=== PATIENT | male | born 1955 | race African-American/Black ===

== ENCOUNTER 2016-09-03 10:59 | Emergency (ER) | payer OTHER ==
[~2016-09-03] VITALS: Ht 170.2 cm; Wt 71.4 kg
[~2016-09-03 10:59] MED LIST: Colace PO; DICLOFENAC SODI75 MG PO; EXFORGE HCT 101 EAC2 PO; Ecotrin PO; LISINOPRIL; LISINOPRIL-HCT1 EACH PO; LISINOPRIL40 MG PO
[2016-09-03 11:08] VITALS: BP 166/92
[2016-09-03] MEDS ORDERED: TRAMADOL HCL50 MG PO (13:53)
[2016-09-03] MEDS ORDERED: KEFLEX500 MG PO (13:55)
== END 2016-09-03 14:33 | disposition home or self-care (01) ==
LOC: EME 10:59
PROC: 3E0234Z Introduction of Serum, Toxoid and Vaccine into Muscle, Percutaneous Approach (ICD-10-PCS; principal; 2016-09-03)
PROC: 2W3DX1Z Immobilization of Left Lower Arm using Splint (ICD-10-PCS; principal; 2016-09-03)
DX: S00.81XA Abrasion of other part of head, initial encounter (principal); S63.592A Other specified sprain of left wrist, initial encounter; W18.39XA Other fall on same level, initial encounter; Z23 Encounter for immunization; K04.90 Unspecified diseases of pulp and periapical tissues; I10 Essential (primary) hypertension; Z87.891 Personal history of nicotine dependence
CPT/HCPCS: 70486; 73110; 99281; 99284

== ENCOUNTER 2016-09-16 11:14 | Emergency (ER) | payer OTHER ==
[~2016-09-16] VITALS: Ht 170.2 cm; Wt 72.4 kg
[~2016-09-16 11:14] MED LIST changes: +KEFLEX500 MG PO; +TRAMADOL HCL50 MG PO
[2016-09-16] MEDS ORDERED: ULTRAM50 MG PO (12:43)
[2016-09-16 12:58] VITALS: BP 107/67
== END 2016-09-16 12:58 | disposition home or self-care (01) ==
LOC: EME 11:14
DX: M67.431 Ganglion, right wrist (principal); I10 Essential (primary) hypertension; Z87.891 Personal history of nicotine dependence
CPT/HCPCS: 73110; 99281; 99284

== ENCOUNTER 2017-05-06 07:27 | Emergency (ER) | payer OTHER ==
[~2017-05-06] VITALS: Ht 167.6 cm; Wt 71.2 kg
[~2017-05-06 07:27] MED LIST changes: +ULTRAM50 MG PO
[2017-05-06 08:44] LABS: HEMATOCRIT 34.9 % (38.0-50.0); MCH 32.5 PG (29.0-34.0); MCHC 34.4 G/DL (30.0-36.0); MCV 94.6 FL (86-99); PLATELET COUNT 191 K/uL (156-360); RBC DIS.WIDTH-SD 48.6 % (39-53); RED BLOOD COUNT 3.69 M/uL (4.00-5.50); WHITE BLOOD COUNT 3.8 K/uL (4.1-10.2)
[2017-05-06 09:42] LABS: ERTH.SED.RATE 8 MM/HR (0-20)
[2017-05-06 11:27] VITALS: BP 132/89
== END 2017-05-06 11:31 | disposition home or self-care (01) ==
LOC: EME 07:27
PROVIDERS: Physician Assistant
DX: M21.372 Foot drop, left foot (principal); I10 Essential (primary) hypertension; Z87.891 Personal history of nicotine dependence
CPT/HCPCS: 72148; 85027; 85651; 86140; 99281; 99284

== ENCOUNTER 2017-07-12 07:08 | Inpatient (IN) | payer OTHER ==
[~2017-07-12] VITALS: Ht 167.6 cm; Wt 72.9 kg
[2017-07-12 07:54] LABS: HEMATOCRIT 35.8 % (38.0-50.0); HEMOGLOBIN 12.6 G/DL (12.5-16.6); MCH 32.6 PG (29.0-34.0); MCHC 35.2 G/DL (30.0-36.0); MCV 92.7 FL (86-99); RBC DIS.WIDTH-CV 13.6 % (11.8-14.6); RBC DIS.WIDTH-SD 46.4 % (39-53); RED BLOOD COUNT 3.86 M/uL (4.00-5.50)
[2017-07-12 08:28] LABS: ALBUMIN 3.3 g/dL (3.2-4.8)
[2017-07-12 08:29] LABS: CHLORIDE 96 mEq/L (99-109); POTASSIUM 4.6 mEq/L (3.7-5.4); SODIUM 137 mEq/L (136-147)
[2017-07-12 08:30] LABS: TROP-I INTERPRETATION NEGATIVE; TROPONIN-I 0.03 ng/mL (0.0-0.30)
[2017-07-12 08:31] LABS: GLUCOSE 156 mg/dL (70-99)
[2017-07-12 08:33] LABS: TOTAL BILIRUBIN 1.1 mg/dL (0.0-1.0)
[2017-07-12 08:34] LABS: ALKALINE PHOSPHATASE 32 IU/L (3-129)
[2017-07-12 08:35] LABS: CREATININE 7.6 mg/dL (0.6-1.3); GFR ESTIMATE (CALCULATED) 9 mL/min/ (58.99-99999)
[2017-07-12 08:36] LABS: ANISOCYTOSIS 1+; AST (GOT) 139 IU/L (2-34); ATYPICAL LYMPHOCYTE 3.5 %; BAND NEUTROPHILS 34.5 % (0-8.0); BASOPHILS 2.6 %; BURR CELLS 1+; EOSINOPHIL ABS CT 0; GIANT PLATELETS 1+; MACROCYTES 1+; METAMYELOCYTES 2.7 %; MONOCYTES 6.2 % (0-9.0); MYELOCYTES 1.8 %; NUCLEATED RBC'S 6.2; OVALOCYTES 1+; PLAT.SUFFICIENCY ADEQUATE; PLATELET CLUMPS PRESENT - PLATELET COUNT APPEARS ADQ.; POIKILOCYTOSIS 2+; POLYCHROMASIA 1+; SEG.NEUTROPHILS 40.7 % (46.0-76.0); TARGET CELLS 1+; TOX.VACUOLIZATION 1+; TOXIC GRANULATION 1+; UREA NITROGEN (BUN) 95 mg/dL (9-23)
[2017-07-12 08:38] LABS: ALT (GPT) 178 IU/L (3-49)
[2017-07-12] MEDS ORDERED: PREDNISONE10 MG PO (09:32)
[2017-07-12] MEDS ORDERED: FLEXERIL5 MG PO (09:32)
[2017-07-12 11:00] VITALS: BP 88/63
[2017-07-12 15:59] VITALS: BP 100/74
[2017-07-12 20:45] VITALS: BP 109/78
[2017-07-12 23:46] VITALS: BP 117/63
[2017-07-13] VITALS (7 sets, daily range): BP systolic 103–158; BP diastolic 53–97
[2017-07-13 05:23] LABS: HEMATOCRIT 30.2 % (38.0-50.0); MCH 31.8 PG (29.0-34.0); MCHC 34.4 G/DL (30.0-36.0); MCV 92.4 FL (86-99); NRBC (%) 0.7 /100 WBC (0-0); RBC DIS.WIDTH-CV 13.9 % (11.8-14.6); RBC DIS.WIDTH-SD 47.7 % (39-53); RED BLOOD COUNT 3.27 M/uL (4.00-5.50); WHITE BLOOD COUNT 5.9 K/uL (4.1-10.2)
[2017-07-13 05:24] LABS: HEMOGLOBIN 10.4 G/DL (12.5-16.6)
[2017-07-13 06:10] LABS: ALBUMIN 2.5 G/DL (3.2-4.8); CHLORIDE 99 MEQ/L (99-109); PHOSPHORUS 5.3 mg/dL (2.5-4.9); POTASSIUM 3.7 MEQ/L (3.7-5.4); SODIUM 136 MEQ/L (136-147); TRANSFERRIN (TIBC) 122.3 mg/dL (215-380); UREA NITROGEN (BUN) 99 mg/dL (9-23)
[2017-07-13 06:11] LABS: CREATININE 6.1 MG/DL (0.6-1.3); GFR ESTIMATE (CALCULATED) 12 mL/min/ (58.99-99999); GLUCOSE 110 mg/dL (70-99)
[2017-07-13 06:17] LABS: ABS NEUTROPHIL COUNT 5.1; ANISOCYTOSIS 2+; BURR CELLS 2+; EOSINOPHIL ABS CT 0; LYMPHOCYTES 10.4 % (15.0-45.0); MACROCYTES 2+; MONOCYTES 2.6 % (0-9.0); MYELOCYTES 0.9 %; NUCLEATED RBC'S 0.9; PLAT.SUFFICIENCY ADEQUATE; PLATELET COUNT 184 K/uL (156-360); POIKILOCYTOSIS 3+; SMUDGE CELLS 0.9
[2017-07-13 06:19] LABS: BAND NEUTROPHILS 11.3 % (0-8.0); SEG.NEUTROPHILS 74.8 % (46.0-76.0)
[2017-07-13 06:23] LABS: URIC ACID 9.1 mg/dL (3.1-9.2)
[2017-07-13 07:50] LABS: IRON < 10.0 MCG/DL (35-150); TRANSFERRIN SATUR. 8 % (20-55)
[2017-07-13 09:21] LABS: APPEARANCE SL.HAZY ((CLEAR)); BILIRUBIN NEGATIVE; BLOOD MODERATE; COLOR YELLOW ((YELLOW)); GLUCOSE (STRIP) NEGATIVE; KETONES NEGATIVE; LEUKOCYTES NEGATIVE; NITRITE NEGATIVE; PROTEIN (STRIP) 30; SPECIFIC GRAVITY 1.012 (1.000-1.030); UROBILINOGEN 0.2 MG/DL (0.2-1.0)
[2017-07-13 09:36] LABS: BACTERIA RARE /HPF; EPITHELIAL CELLS RARE /HPF; MUCUS TRACE /LPF; RED BLOOD CELLS 0-5 /HPF (0-5); UCUL ADDED? NO; WHITE BLOOD CELLS 0-5 /HPF (0-5)
[2017-07-13 10:19] LABS: UR CREATININE CONCENTRATION 92.2 MG/DL
[2017-07-13 10:24] LABS: UR CREATININE CONCENTRATION 91.8 MG/DL
[2017-07-14 02:29] VITALS: BP 134/119
[2017-07-14 03:48] LABS: HEMATOCRIT 30.6 % (38.0-50.0); HEMOGLOBIN 11.3 G/DL (12.5-16.6); MCH 32.8 PG (29.0-34.0); MCHC 36.9 G/DL (30.0-36.0); NRBC (%) 0.6 /100 WBC (0-0); PLATELET COUNT 218 K/uL (156-360); RBC DIS.WIDTH-CV 13.7 % (11.8-14.6); RBC DIS.WIDTH-SD 44.6 % (39-53); RED BLOOD COUNT 3.44 M/uL (4.00-5.50); WHITE BLOOD COUNT 9.8 K/uL (4.1-10.2)
[2017-07-14 03:51] LABS: HEMATOCRIT 30.4 % (38.0-50.0); HEMOGLOBIN 11.3 G/DL (12.5-16.6); MCH 32.9 PG (29.0-34.0); MCHC 37.2 G/DL (30.0-36.0); MCV 88.6 FL (86-99); NRBC (%) 0.5 /100 WBC (0-0); RBC DIS.WIDTH-CV 13.7 % (11.8-14.6); RBC DIS.WIDTH-SD 44.9 % (39-53); RED BLOOD COUNT 3.43 M/uL (4.00-5.50); WHITE BLOOD COUNT 9.6 K/uL (4.1-10.2)
[2017-07-14 03:55] LABS: INTER. NORMALIZED RATIO 1.1
[2017-07-14 03:57] LABS: PTT 28.2 SEC (25-37)
[2017-07-14 04:00] LABS: ALBUMIN 2.7 g/dL (3.2-4.8); POTASSIUM 3.9 mEq/L (3.7-5.4); SODIUM 138 mEq/L (136-147)
[2017-07-14 04:02] LABS: ALBUMIN 2.8 g/dL (3.2-4.8); GLUCOSE 100 mg/dL (70-99); POTASSIUM 3.8 mEq/L (3.7-5.4); SODIUM 138 mEq/L (136-147)
[2017-07-14 04:03] LABS: MAGNESIUM 1.7 mg/dL (1.3-2.7)
[2017-07-14 04:05] LABS: GLUCOSE 100 mg/dL (70-99); PHOSPHORUS 4.7 mg/dL (2.5-4.9)
[2017-07-14 04:07] LABS: AST (GOT) 81 IU/L (2-34); DIRECT BILIRUBIN 0.4 mg/dL (0.0-0.3); UREA NITROGEN (BUN) 99 mg/dL (9-23)
[2017-07-14 04:08] LABS: PHOSPHORUS 4.7 mg/dL (2.5-4.9)
[2017-07-14 04:09] LABS: ALT (GPT) 105 IU/L (3-49)
[2017-07-14 04:10] LABS: AST (GOT) 82 IU/L (2-34)
[2017-07-14 04:11] LABS: ALT (GPT) 104 IU/L (3-49)
[2017-07-14 04:14] LABS: ALKALINE PHOSPHATASE 63 IU/L (3-129); CHLORIDE 108 mEq/L (99-109); CREATININE 4.4 mg/dL (0.6-1.3); GFR ESTIMATE (CALCULATED) 18 mL/min/ (58.99-99999); TOTAL BILIRUBIN 0.6 mg/dL (0.0-1.0); TOTAL PROTEIN 5.8 g/dL (6.4-8.3); UREA NITROGEN (BUN) 99 mg/dL (9-23)
[2017-07-14 04:15] LABS: ALKALINE PHOSPHATASE 62 IU/L (3-129); CHLORIDE 108 mEq/L (99-109); CREATININE 4.4 mg/dL (0.6-1.3); GFR ESTIMATE (CALCULATED) 18 mL/min/ (58.99-99999); TOTAL BILIRUBIN 0.5 mg/dL (0.0-1.0); TOTAL PROTEIN 5.7 g/dL (6.4-8.3)
[2017-07-14 04:51] VITALS: BP 92/54; BP 94/64
[2017-07-14 05:30] LABS: BASOPHIL (%) 0.3 % (0-1); EOSINOPHIL (%) 0 % (0-5); IMMATURE GRANULOCYTE (%) 3.6 % (0.0-0.7); LYMPHOCYTE (%) 4.5 % (15-42); LYMPHOCYTE COUNT 0.4 K/uL (1.0-2.8); MONOCYTE (%) 5.6 % (3-12); MONOCYTE COUNT 0.5 K/uL (0-0.8); NEUTROPHIL COUNT 8.3 K/uL (1.8-6.4); PLATELET CLUMPS PRESENT - PLATELET COUNT APPEARS ADQ.
[2017-07-14 10:30] LABS: HEPATITIS B SURFACE ANTIGEN Nonreactive
[2017-07-14 10:31] LABS: ANTI-HEPATITIS A VIRUS (IGM) Nonreactive
[2017-07-14 10:31] LABS: BASE EXCESS -4.6 mEq/L (-3 to +3); BICARBONATE 18.6 mEq/L (22-26); CARBOXY HGB 1.4 % (0-5); METHEMOGLOBIN 1.3 % (0-1.5); PCO2 28 mm Hg (35-45); PO2 58 mm Hg (80-100); pH 7.43 (7.35-7.45)
[2017-07-14 10:32] LABS: COMMENTS - BLOOD GASES A+C+; DEVICE RA; SITE RR
[2017-07-14 10:32] LABS: ANTI-HEPATITIS B CORE (IGM) Nonreactive; HEPATITIS C ANTIBODY REACTIVE
[2017-07-14 11:29] LABS: BENZODIAZEPINES, URINE SCREEN Negative (200 ng/mL)
[2017-07-14 15:56] VITALS: BP 137/93
[2017-07-14 19:45] VITALS: BP 141/101
[2017-07-14 23:15] LABS: C DIFF TOXIN NEGATIVE (NEGATIVE)
[2017-07-15] VITALS (7 sets, daily range): BP systolic 119–163; BP diastolic 86–106
[2017-07-15 05:35] LABS: HEMATOCRIT 31.9 % (38.0-50.0); HEMOGLOBIN 11.2 G/DL (12.5-16.6); MCH 31.8 PG (29.0-34.0); MCHC 35.1 G/DL (30.0-36.0); MCV 90.6 FL (86-99); NRBC (%) 0.8 /100 WBC (0-0); RBC DIS.WIDTH-CV 14.6 % (11.8-14.6); RBC DIS.WIDTH-SD 48.8 % (39-53); RED BLOOD COUNT 3.52 M/uL (4.00-5.50); WHITE BLOOD COUNT 7.3 K/uL (4.1-10.2)
[2017-07-15 05:58] LABS: ALBUMIN 2.7 G/DL (3.2-4.8); ALKALINE PHOSPHATASE 64 IU/L (3-129); ALT (GPT) 63 IU/L (3-49); AST (GOT) 48 IU/L (2-34); CHLORIDE 109 MEQ/L (99-109); CREATININE 2.5 MG/DL (0.6-1.3); DIRECT BILIRUBIN 0.1 mg/dL (0.0-0.3); GFR ESTIMATE (CALCULATED) 34 mL/min/ (58.99-99999); GLUCOSE 78 mg/dL (70-99); PHOSPHORUS 4.4 mg/dL (2.5-4.9); POTASSIUM 3.4 MEQ/L (3.7-5.4); SODIUM 146 MEQ/L (136-147); TOTAL BILIRUBIN 0.5 MG/DL (0.0-1.0); TOTAL PROTEIN 6.4 G/DL (6.4-8.3); UREA NITROGEN (BUN) 76 mg/dL (9-23)
[2017-07-15 06:05] LABS: ABS NEUTROPHIL COUNT 6.2; ANISOCYTOSIS 2+; BAND NEUTROPHILS 4.3 % (0-8.0); BASOPHILS 0.9 %; BURR CELLS 1+; EOSINOPHIL ABS CT 0; HELMET CELLS 1+; LYMPHOCYTES 2.6 % (15.0-45.0); MACROCYTES 2+; METAMYELOCYTES 0.9 %; MONOCYTES 9.6 % (0-9.0); MYELOCYTES 1.7 %; NUCLEATED RBC'S 0.9; OVALOCYTES 1+; PLAT.SUFFICIENCY ADEQUATE; PLATELET COUNT 225 K/uL (156-360); POIKILOCYTOSIS 1+; POLYCHROMASIA 1+
[2017-07-15 18:13] LABS: TROP-I INTERPRETATION INDETERMINATE; TROPONIN-I 0.35 ng/mL (0.0-0.30)
[2017-07-16 00:07] LABS: TROP-I INTERPRETATION NEGATIVE; TROPONIN-I 0.22 ng/mL (0.0-0.30)
[2017-07-16 04:38] VITALS: BP 125/81
[2017-07-16 06:16] LABS: ALBUMIN 2.5 G/DL (3.2-4.8); CHLORIDE 109 MEQ/L (99-109); GLUCOSE 83 mg/dL (70-99); PHOSPHORUS 4.2 mg/dL (2.5-4.9); SODIUM 144 MEQ/L (136-147); UREA NITROGEN (BUN) 49 mg/dL (9-23)
[2017-07-16 06:17] LABS: CREATININE 1.6 MG/DL (0.6-1.3); GFR ESTIMATE (CALCULATED) 56 mL/min/ (58.99-99999); POTASSIUM 5.2 MEQ/L (3.7-5.4)
[2017-07-16 07:30] VITALS: BP 139/95
[2017-07-16 07:30] LABS: POTASSIUM 3.3 MEQ/L (3.7-5.4)
[2017-07-16 12:20] VITALS: BP 142/97
[2017-07-16 16:32] VITALS: BP 141/96
[2017-07-16 20:00] VITALS: BP 150/98
[2017-07-16 23:25] VITALS: BP 154/81
[2017-07-17] VITALS (9 sets, daily range): BP systolic 103–188; BP diastolic 65–85
[2017-07-17 06:43] LABS: ALBUMIN 2.2 G/DL (3.2-4.8); CHLORIDE 105 MEQ/L (99-109); GFR ESTIMATE (CALCULATED) > 59 mL/min/ (58.99-99999); PHOSPHORUS 3.1 mg/dL (2.5-4.9); POTASSIUM 3.9 MEQ/L (3.7-5.4); SODIUM 141 MEQ/L (136-147)
[2017-07-17 06:49] LABS: CREATININE 1.1 MG/DL (0.6-1.3); GLUCOSE 108 mg/dL (70-99); UREA NITROGEN (BUN) 23 mg/dL (9-23)
[2017-07-18] VITALS (7 sets, daily range): BP systolic 107–154; BP diastolic 66–88
[2017-07-18 07:04] LABS: ALBUMIN 2.2 G/DL (3.2-4.8); CHLORIDE 106 MEQ/L (99-109); CREATININE 1.1 MG/DL (0.6-1.3); GFR ESTIMATE (CALCULATED) > 59 mL/min/ (58.99-99999); GLUCOSE 115 mg/dL (70-99); PHOSPHORUS 3.1 mg/dL (2.5-4.9); POTASSIUM 3.8 MEQ/L (3.7-5.4); SODIUM 144 MEQ/L (136-147); UREA NITROGEN (BUN) 14 mg/dL (9-23)
[2017-07-18 07:15] LABS: ABS NEUTROPHIL COUNT 6.8; ANISOCYTOSIS 1+; ATYPICAL LYMPHOCYTE 2.6 %; BAND NEUTROPHILS 2.6 % (0-8.0); EOSINOPHIL ABS CT 0.1; EOSINOPHILS 0.9 % (0-5.0); GIANT PLATELETS 2+; HEMATOCRIT 30.1 % (38.0-50.0); HEMATOLOGY COMMENT 1 SN; LYMPHOCYTES 10.4 % (15.0-45.0); MACROCYTES 1+; MCH 31.9 PG (29.0-34.0); MCHC 33.2 G/DL (30.0-36.0); METAMYELOCYTES 1.7 %; MYELOCYTES 1.7 %; PLATELET CLUMPS PRESENT - PLATELET COUNTS APPEARS DECREASED; RBC DIS.WIDTH-SD 52.6 % (39-53); RED BLOOD COUNT 3.13 M/uL (4.00-5.50); SEG.NEUTROPHILS 73.1 % (46.0-76.0); TOXIC GRANULATION 2+
[2017-07-18 07:24] LABS: MCV 96.2 FL (86-99); PLATELET COUNT 327 K/uL (156-360)
[2017-07-19 00:34] LABS: ALBUMIN 2.3 G/DL (3.2-4.8); CHLORIDE 109 MEQ/L (99-109); POTASSIUM 3.8 MEQ/L (3.7-5.4); SODIUM 143 MEQ/L (136-147); TOTAL BILIRUBIN 0.5 MG/DL (0.0-1.0)
[2017-07-19 00:40] LABS: ALKALINE PHOSPHATASE 56 IU/L (3-129); ALT (GPT) 33 IU/L (3-49); GFR ESTIMATE (CALCULATED) > 59 mL/min/ (58.99-99999); GLUCOSE 120 mg/dL (70-99); UREA NITROGEN (BUN) 14 mg/dL (9-23)
[2017-07-19 00:45] LABS: AST (GOT) 21 IU/L (2-34); TOTAL PROTEIN 5.1 G/DL (6.4-8.3)
[2017-07-19 03:46] VITALS: BP 130/70
[2017-07-19 07:17] LABS: ALBUMIN 2.5 G/DL (3.2-4.8); CHLORIDE 105 MEQ/L (99-109); CREATININE 1.1 MG/DL (0.6-1.3); GFR ESTIMATE (CALCULATED) > 59 mL/min/ (58.99-99999); GLUCOSE 144 mg/dL (70-99); SODIUM 142 MEQ/L (136-147); UREA NITROGEN (BUN) 13 mg/dL (9-23)
[2017-07-19 07:19] LABS: PHOSPHORUS 4.9 mg/dL (2.5-4.9); POTASSIUM 5.1 MEQ/L (3.7-5.4)
[2017-07-19 08:06] VITALS: BP 113/74
[2017-07-19 15:23] VITALS: BP 112/70
[2017-07-19 17:43] LABS: TYPE OF FLUID THORACENTESIS
[2017-07-19 18:13] LABS: BODY FLUID GLUCOSE 149 MG/DL; BODY FLUID LDH 153 IU/L
[2017-07-19 18:17] LABS: APPEARANCE YELLOW-CLOUDY; BODY FLUID EOSINOPHILS 0 % (0-25); BODY FLUID RBC'S 3000 /MM^3 (0-100); BODY FLUID WBC'S 1954 /MM^3 (0-500); COMMENT MANY MACROPHAGES AND MESOTHELIAL CELLS SEEN; MONONUCLEAR WBC'S 44 %; POLYNUCLEAR WBC'S 56 % (0-25)
[2017-07-19 19:01] LABS: GLUCOSE 155 mg/dL (70-99); LACTATE DEHYDROGENASE 171 IU/L (20-246)
[2017-07-19 19:02] LABS: TOTAL PROTEIN 5.9 G/DL (6.4-8.3)
[2017-07-19 20:04] VITALS: BP 133/84
[2017-07-19 23:06] VITALS: BP 129/72
[2017-07-20 03:36] VITALS: BP 111/73
[2017-07-20 06:45] VITALS: BP 137/86
[2017-07-20 15:30] VITALS: BP 131/88
[2017-07-20 20:00] VITALS: BP 140/90
[2017-07-20 23:41] VITALS: BP 140/90
[2017-07-21 04:00] VITALS: BP 130/80
[2017-07-21 05:53] LABS: BASOPHIL (%) 0 % (0-1); EOSINOPHIL (%) 0 % (0-5); HEMATOCRIT 29.2 % (38.0-50.0); HEMOGLOBIN 9.9 G/DL (12.5-16.6); IMMATURE GRANULOCYTE (%) 1.2 % (0.0-0.7); LYMPHOCYTE (%) 11.9 % (15-42); LYMPHOCYTE COUNT 0.9 K/uL (1.0-2.8); MCH 32.2 PG (29.0-34.0); MCHC 33.9 G/DL (30.0-36.0); MCV 95.1 FL (86-99); MONOCYTE (%) 6.4 % (3-12); MONOCYTE COUNT 0.5 K/uL (0-0.8); NEUTROPHIL (%) 80.5 % (45-76); NEUTROPHIL COUNT 5.9 K/uL (1.8-6.4); RBC DIS.WIDTH-CV 14.6 % (11.8-14.6); RBC DIS.WIDTH-SD 50.6 % (39-53); RED BLOOD COUNT 3.07 M/uL (4.00-5.50); WHITE BLOOD COUNT 7.3 K/uL (4.1-10.2)
[2017-07-21 05:55] LABS: PLATELET COUNT 510 K/uL (156-360)
[2017-07-21 06:17] LABS: CREATININE 0.9 MG/DL (0.6-1.3); GFR ESTIMATE (CALCULATED) > 59 mL/min/ (58.99-99999); GLUCOSE 137 mg/dL (70-99); UREA NITROGEN (BUN) 19 mg/dL (9-23)
[2017-07-21 06:23] LABS: CHLORIDE 104 MEQ/L (99-109); SODIUM 139 MEQ/L (136-147)
[2017-07-21 07:15] VITALS: BP 134/87
[2017-07-21] MEDS ORDERED: Thiamine,Vitamin B1 PO (16:15)
[2017-07-21] MEDS ORDERED: THERAGRAN1 TABLET PO (16:15)
[2017-07-21] MEDS ORDERED: FOLIC ACID1 MG PO (16:15)
[2017-07-21] MEDS ORDERED: TYLENOL REGULA325 MG PO (16:16)
[2017-07-21] MEDS ORDERED: DULERA 200 MCG/13 GM IH (16:16)
[2017-07-21] MEDS ORDERED: LOPRESSOR50 MG PO (16:16)
[2017-07-21] MEDS ORDERED: FAMOTIDINE20 MG PO (16:16)
[2017-07-21] MEDS ORDERED: LEVAQUIN750 MG PO (16:17)
[2017-07-24 05:05] LABS: BODY FLUID PH 7.8 (())
== END 2017-07-21 17:15 | disposition home health service (06) | DRG 871 ==
LOC: EME 07:08 → EDOF 09:50 → 4EAST 09:50 → ENRESERV 09:51 → 4EAST 10:57 → ENRESERV 07-16 21:43 → 5EAST 07-16 23:20
PROVIDERS: Emergency Medicine; Family Medicine Sports Medicine; Internal Medicine Cardiovascular Disease; Internal Medicine Nephrology; Internal Medicine Pulmonary Disease
DX: A41.9 Sepsis, unspecified organism (principal); J44.0 Chronic obstructive pulmonary disease with (acute) lower respiratory infection; J18.9 Pneumonia, unspecified organism; N17.9 Acute kidney failure, unspecified; I10 Essential (primary) hypertension; E87.2 Acidosis; G89.29 Other chronic pain; F10.231 Alcohol dependence with withdrawal delirium; B95.3 Streptococcus pneumoniae as the cause of diseases classified elsewhere; I48.0 Paroxysmal atrial fibrillation; I25.10 Atherosclerotic heart disease of native coronary artery without angina pectoris; I95.9 Hypotension, unspecified; K21.9 Gastro-esophageal reflux disease without esophagitis; E78.5 Hyperlipidemia, unspecified; E86.0 Dehydration; F41.9 Anxiety disorder, unspecified; E87.6 Hypokalemia; M19.90 Unspecified osteoarthritis, unspecified site; F32.9 Major depressive disorder, single episode, unspecified; M48.00 Spinal stenosis, site unspecified
CPT/HCPCS: 36600; 70450; 71045; 71046; 71250; 74176; 76770; 76942; 80048; 80053; 80069; 80074; 80076; 80306 90; 81003; 82140; 82570; 82803; 82945; 82947; 83540; 83605; 83615; 83615 91; 83735; 83880; 83930; 83986 90; 84100; 84155; 84156; 84157; 84300; 84466; 84484; 84550; 84999; 85025; 85027; 85379; 85610; 85730; 87040; 87070; 87075; 87077; 87116; 87181; 87205; 87206; 87493; 87801; 88108; 88305; 89051; 93005; 93306; 94010; 94640; 94640 76; 94668; 94799; 97530 GP; 99202; 99281; 99285; G0480; J0456; J0696; J1644; J1650; J1756; J2060; J2543; J2920; J2930; J3370; J3480; J7030; J7050; J7512

== ENCOUNTER 2017-09-29 11:15 | Emergency (ER) | payer OTHER ==
[~2017-09-29] VITALS: Ht 167.6 cm; Wt 73.4 kg
[~2017-09-29 11:15] MED LIST changes: +DULERA 200 MCG/13 GM IH; +FAMOTIDINE20 MG PO; +FLEXERIL5 MG PO; +FOLIC ACID1 MG PO; +LEVAQUIN750 MG PO; +LOPRESSOR50 MG PO; +PREDNISONE10 MG PO; +THERAGRAN1 TABLET PO; +TYLENOL REGULA325 MG PO; +Thiamine,Vitamin B1 PO
[2017-09-29] MEDS ORDERED: FLEXERIL10 MG PO (17:05)
[2017-09-29 17:18] VITALS: BP 129/92
== END 2017-09-29 17:23 | disposition home or self-care (01) ==
LOC: EME 11:15
DX: M48.061 Spinal stenosis, lumbar region without neurogenic claudication (principal); G89.29 Other chronic pain; I10 Essential (primary) hypertension; Z87.891 Personal history of nicotine dependence
CPT/HCPCS: 72148; 99281; 99285; J1885

== ENCOUNTER 2017-10-10 12:09 | Emergency (ER) | payer OTHER ==
[~2017-10-10] VITALS: Ht 167.6 cm; Wt 75.6 kg
[~2017-10-10 12:09] MED LIST changes: +FLEXERIL10 MG PO
[2017-10-10] MEDS ORDERED: NORCO 5/3251 TABLET PO (13:21)
[2017-10-10] MEDS ORDERED: INDOCIN50 MG PO (13:21)
[2017-10-10 14:03] VITALS: BP 143/95
== END 2017-10-10 14:04 | disposition home or self-care (01) ==
LOC: EME 12:09
PROC: 0M9 Bursae and Ligaments, Drainage (ICD-10-PCS; principal; 2017-10-10)
DX: M67.441 Ganglion, right hand (principal); I10 Essential (primary) hypertension
CPT/HCPCS: 73130; 99281; 99284

== ENCOUNTER 2017-11-08 19:01 | Emergency (ER) | payer OTHER ==
[~2017-11-08] VITALS: Ht 167.6 cm; Wt 74.5 kg
[~2017-11-08 19:01] MED LIST changes: +INDOCIN50 MG PO; +NORCO 5/3251 TABLET PO
[2017-11-08] MEDS ORDERED: INDOCIN50 MG PO (19:38)
[2017-11-08 19:45] VITALS: BP 99/69
== END 2017-11-08 20:00 | disposition home or self-care (01) ==
LOC: EME 19:01
PROC: 0H9DXZZ Drainage of Right Lower Arm Skin, External Approach (ICD-10-PCS; principal; 2017-11-08)
DX: M67.431 Ganglion, right wrist (principal)
CPT/HCPCS: 99281; 99283